=== PATIENT | female | born 1995 ===

== ENCOUNTER 2024-03-30 01:17 | Inpatient (IN) ==
[2024-03-30] MEDS ORDERED: OXYTOCIN 30 UNITS/NSS 30 UNITS/500 ML BAG IV PRN ×2 (02:00→20:27)
[2024-03-30] MEDS ORDERED: CALCIUM CARBONATE 500 MG CHEWABLE TAB PO PRN (02:00)
[2024-03-30] MEDS ORDERED: LIDOCAINE 1% LOCAL 20 ML VIAL INFIL PRN (02:00)
[2024-03-30] MEDS ORDERED: BUTORPHANOL TARTRATE 1 MG/ML VIAL IV PRN (02:00)
[2024-03-30] MEDS ORDERED: ACETAMINOPHEN 500 MG TAB PO PRN (02:00)
--- NOTE | 2024-03-30 02:08 | History & Physical Report ---
Date of Service March 30, 2024 Assessment & Plan (1) Uterine contractions at greater than 20 weeks of gestation: Plan: 28-year-old G1, P0 at 40 weeks and 1 day gestation presenting with uterine contractions, in early labor with tight bulging bag, Vital signs stable afebrile, GBS negative, heart rate reassuring, Plan to admit, monitor, labs, ambulate in early labor Discussed augmentation with oxytocin if no progress, patient desires to wait until her partner comes from [place], which is [address] She plans to get epidural when needed, All questions were answered. (2) Anxiety and depression: History of Present Illness Chief Complaint: Contractions Primary Care Provider: NO PCP patient is a 28-year-old G1, P0 at 40 weeks, 1 days gestation who has been feeling contractions since last night around 7 PM. States that it is irregular as every 5 to 3 minutes and then they are getting closer and more painful over time. She denies leakage of fluid or vaginal bleeding. She reports good movements. Her has been uncomplicated except, 1. Class II obesity during , growth scan 2 weeks ago was within normal limits, 2. Anxiety/depression during she has been on Zoloft, 25 mg daily and has been doing well 3. anemia during , on iron po twice daily GBS negative Allergies Allergy/AdvReac Type Severity Reaction Status Date / Time amoxicillin [From Augmentin] Allergy Hives Verified 03/30/24 01:38 clavulanic acid Allergy Hives Verified 03/30/24 01:38 [From Augmentin] Home Medications Medication Instructions Recorded Confirmed Type ascorbic acid (vitamin C) 250 mg 250 mg PO DAILY 03/30/24 03/30/24 History chewable tablet (Vitamin C) ferrous sulfate 325 mg (65 mg 325 mg PO DAILY 03/30/24 03/30/24 History iron) tablet (Iron (ferrous sulfate)) [id number] 1 mg 1 tab PO 03/30/24 History tablet sertraline 25 mg tablet (Zoloft) 25 mg PO DAILY 03/30/24 03/30/24 History Patient History Medical History Anxiety and depression Anxiety HPV (human papilloma virus) infection Surgical History History of colposcopy Social History Smoking Status: Never smoker Hx Alcohol Use: No Hx Substance Use: No Preferred Language: Slovenian Communication Ability: Effective Project Coordinator Required: No Beliefs That Will Affect Care: None marital status: Single Current Living Situation: Significant Other Feels Safe at Home: Yes Assistive Devices: None Review of Systems as per Subjective / HPI Physical Exam Constitutional: WD/WN, vitals as above well developed, well nourished and + acute distress ( with contractions only) Genitourinary: normal external appearance OB Exam Abdomen: + vertex Manual OB Exam: + cervical dilation 3 cm, + cervical effacement 70% and + station -2 ( tight bulging bag) OB Exam Monitor Tracing: + external uterine monitor used and + category I Results & Data Vital Signs (Past 12 Hours) Vital Signs Pulse BP 03/30/24 01:36 67 133/81
[2024-03-30] MEDS: LACTATED RINGER'S 1,000 ML IV ONE (02:20)
[2024-03-30 02:47] LABS: Hematocrit (blood only) 34.2 % (37.0-47.0); Hemoglobin 11.9 g/dl (12.0-16.0); Mean Corpuscular Hemoglobin 29.2 pg (25.0-34.0); Mean Corpuscular Hgb Conc 34.8 g/dL (32.0-36.0); Mean Platelet Volume 10.3 fL (9.4-12.4); Platelet Count 214 K/uL (130-400); RDW Coefficient of Variation 12.3 % (11.5-14.5); RDW Standard Deviation 37.3 fL (36.4-46.3); Red Blood Count 4.07 M/uL (4.20-5.40); White Blood Count 10.69 K/ul (4.8-10.8)
[2024-03-30 02:53] LABS: Albumin Globulin Ratio 1.1 (0.9-2); Albumin Level 3.3 gm/dl (3.4-5.0); BUN Creatinine Ratio 14.3 (10-20); Bilirubin,Total 0.2 mg/dl (0.2-1.0); Creatinine Clr Calc Pharmacy 138.6 ml/min; Est GFR (African American) 135.7 ml/min; Est GFR (Non-African American) 117.1 ml/min; Globulin 3.1 gm/dl (2.5-4.0); Potassium 3.8 mmol/L (3.5-5.1); Total Protein 6.4 gm/dl (6.0-8.3)
--- NOTE | 2024-03-30 08:49 | Labor Progress Brief Note ---
Date of Service March 30, 2024 Assessment & Plan Admission and Anticipated Discharge Date Admission Date: March 30, 2024 Physical Exam Genitourinary: OB Exam Abdomen: + estimated weight (7 lbs) Manual OB Exam: + cervical dilation 3 cm, + cervical effacement 70%, + station -2 and + amniotic fluid clear OB Exam Monitor Tracing: + external FHT monitor used, + external uterine monitor used, + category I and + normal FHT variability AROM with Amni-hook with clear fluid Results & Data Vital Signs (Past 12 Hours) Vital Signs Temp Pulse Resp BP 03/30/24 07:15 36.7 C 16 03/30/24 07:07 68 127/65 03/30/24 01:44 36.5 C 16 03/30/24 01:36 67 133/81
[2024-03-30] MEDS: LACTATED RINGER'S 1,000 ML IV PRN (08:54)
[2024-03-30] MEDS ORDERED: SERTRALINE HCL 50 MG TABLET PO SCH (09:00)
[2024-03-30] MEDS ORDERED: Nursing to Pharmacy Communication SCH (10:15)
[2024-03-30] MEDS: OXYTOCIN 30 UNITS/NSS 30 UNITS/500 ML BAG IV PRN (10:16)
[2024-03-30] MEDS ORDERED: diphenhydrAMINE 50 MG/ML VIAL IV PRN (12:27)
[2024-03-30] MEDS ORDERED: SODIUM CHLORIDE 0.9% PF INJ 10 ML VIAL EPI PRN (12:27)
[2024-03-30] MEDS ORDERED: LIDOCAINE 2% MPF LOCAL 5 ML VIAL EPI PRN (12:27)
[2024-03-30] MEDS ORDERED: NALBUPHINE HCL 5 MG in SYRINGE 0 ML IV PRN (12:27)
[2024-03-30] MEDS ORDERED: NALOXONE HCL 1 MG in SODIUM CHLORIDE 0.9% 1,000 ML IV PRN (12:27)
[2024-03-30] MEDS ORDERED: NALOXONE HCL 0.4 MG/1 ML VIAL/CARP IV PRN (12:27)
[2024-03-30] MEDS ORDERED: ePHEDrine sulfate 50 MG/ML AMP IV PRN (12:27)
[2024-03-30] MEDS ORDERED: ROPIVACAINE 0.5% PF 5 MG/ML 20 ML VIAL EPI PRN (12:27)
--- NOTE | 2024-03-30 12:27 | Anesthesiology Consultation ---
Date of Service March 30, 2024 Assessment & Plan Chart Review Chart Review: Acceptable Risk for Labor Epidural Consults Requested none History Height/Weight Height: 5 ft 4 in Weight: 103 kg Allergies Allergy/AdvReac Type Severity Reaction Status Date / Time amoxicillin [From Augmentin] Allergy Hives Verified 03/30/24 01:38 clavulanic acid Allergy Hives Verified 03/30/24 01:38 [From Augmentin] Medications Home Medications Medication Instructions Recorded Confirmed Last Taken ascorbic acid (vitamin C) 250 mg 250 mg PO DAILY 03/30/24 03/30/24 1 Day Ago chewable tablet (Vitamin C) ~03/29/24 ferrous sulfate 325 mg (65 mg 325 mg PO DAILY 03/30/24 03/30/24 1 Day Ago iron) tablet (Iron (ferrous ~03/29/24 sulfate)) [id number] 1 mg 1 tab PO 03/30/24 1 Day Ago tablet ~03/29/24 sertraline 25 mg tablet (Zoloft) 25 mg PO DAILY 03/30/24 03/30/24 1 Day Ago ~03/29/24 Active Medications Generic Name Dose Route Start Last Admin Trade Name Freq PRN Reason Stop Dose Admin Lactated Ringer's 1,000 mls @ 150 mls/hr 03/30/24 02:00 03/30/24 11:54 Lr IV 04/01/24 01:59 999 mls/hr .[id number] PRN Infusion L&D Protocol Protocol Oxytocin 30 units in 500 mls @ 5 mls/hr 03/30/24 02:08 03/30/24 11:16 Pitocin 30 Units/Nss IV 04/01/24 02:07 0.3 units/hr .Q24H PRN 5 mls/hr Labor Induction/Augmentation Titration Protocol 0.3 UNITS/HR Past Medical History Medical History Anxiety and depression Anxiety HPV (human papilloma virus) infection Past Surgical History Surgical History History of colposcopy Social History Smoking Status: Never smoker Hx Alcohol Use: No Hx Substance Use: No Review of Systems Constitutional: as per Subjective / HPI Physical Exam Vital Signs Last Vital Signs Temp 36.9 C 03/30/24 10:20 Pulse 65 03/30/24 12:24 Resp 22 03/30/24 12:00 BP 136/81 03/30/24 11:17 Pulse Ox 98 03/30/24 12:24 Constitutional WD/WN, vitals as above well developed, well nourished and + acute distress ( with contractions only) Genitourinary normal external appearance OB Exam Abdomen: + vertex and + estimated weight (7 lbs) Manual OB Exam: + cervical dilation + 3 cm, + cervical effacement + 70%, + station + -2 and + amniotic fluid + clear OB Exam Monitor Tracing: + external FHT monitor used, + external uterine monitor used, + category I and + normal FHT variability Testing Laboratory Results 03/30/24 02:13 03/30/24 02:13 Blood Type O Positive 03/30/24 02:13 Antibody Screen NEGATIVE 03/30/24 02:13
[2024-03-30] MEDS: fentANYL 2 MCG/ML BUPIVacaine 0.125%-NSS 100ML BAG ONE (12:33)
[2024-03-30] MEDS: LIDOCAINE 2%/EPINEPHRINE 1:200,000 20 ML PF ONE (12:33)
[2024-03-30] MEDS: BUPIVACAINE 0.25% PF 30 ML VIAL ONE (13:10)
[2024-03-30] MEDS: fentaNYL citrate PF 100 MCG/2 ML VIAL ONE (13:10)
[2024-03-30] MEDS: ePHEDrine sulfate 50 MG/ML AMP ONE (13:10)
[2024-03-30] MEDS: SODIUM CHLORIDE 0.9% PF INJ 10 ML VIAL ONE (13:11)
[2024-03-30] MEDS: BUPIVACAINE 0.25% PF 30 ML VIAL EPI STA (13:11)
[2024-03-30] MEDS: fentaNYL citrate PF 100 MCG/2 ML VIAL EPI STA (13:11)
[2024-03-30] MEDS: SODIUM CHLORIDE 0.9% PF INJ 10 ML VIAL EPI STA (13:12)
[2024-03-30] MEDS: LIDOCAINE 2%/EPINEPHRINE 1:200,000 20 ML PF EPI STA (13:12)
[2024-03-30] MEDS: SERTRALINE HCL 50 MG TABLET PO SCH (13:23)
[2024-03-30] MEDS: fentANYL 2 MCG/ML BUPIVacaine 0.125%-NSS 100ML BAG EPI PRN (16:37)
[2024-03-30] MEDS ORDERED: NURSING L&D Epidural Breakthrough Pain Update ONE (16:52)
[2024-03-30] MEDS: BUPIVACAINE 0.25% PF 30 ML VIAL EPI PRN (17:06)
[2024-03-30] MEDS: fentaNYL citrate PF 100 MCG/2 ML VIAL EPI PRN (17:06)
--- NOTE | 2024-03-30 17:07 | Anesthesia Procedure Note ---
Date of Service March 30, 2024 Anesthesia Epidural Re-Dose Vital Signs Temp Pulse Resp BP Pulse Ox 37.1 C 74 20 115/64 97 03/30/24 16:15 03/30/24 17:04 03/30/24 16:30 03/30/24 16:23 03/30/24 17:04 Notes Pain Intensity: 8 Dilatation (cm): 5.5 Effacement (%): 90 Called by nursing to evaluate epidural as the patient is having increased pain. The epidural was re-dosed with the following medications (all medications via epidural route) after negative aspiration of the epidural catheter for CSF/HEME. 0.2 Ropivacaine ml via epidural After Epidural Re-Dose Mental Status: alert / awake / arousable and participated in evaluation Pain: improving with treatment Airway Patency, RR, SpO2: stable & adequate BP & HR: stable & adequate Additional Notes: Asked to evaluate patient for increased pain. Upon test with ice, patient had b/l T12 level. Redosed patient with 8 cc of 0.25 bupi and 100 mcg fentanyl. Pain improved. HDS after redose
[2024-03-30] MEDS ORDERED: fentaNYL citrate PF 100 MCG/2 ML VIAL EPI PRN (17:16)
--- NOTE | 2024-03-30 20:15 | Delivery Summary ---
Vaginal Delivery Summary Date of Service March 30, 2024 Vaginal Delivery Summary live female MARIANA over intact perineum with delayed cord clamping and Apgars 8/8 weight pending. Cord blood obtained followed by spontaneous delivery of intact placenta. No tears. QBL pending. Final sponge and instrument count are correct. Mom and baby stable.
--- NOTE | 2024-03-30 20:21 | Anesthesia Procedure Note ---
Date of Service March 30, 2024 Anesthesia Post Epidural Note Vital Signs Vital Signs: Temp Pulse Resp BP Pulse Ox 36.7 C 80 18 134/72 99 03/30/24 19:48 03/30/24 20:15 03/30/24 19:48 03/30/24 20:08 03/30/24 20:15 Pain Intensity Lower Abdomen: Pain Intensity: 4 Notes Mental Status: alert / awake / arousable and participated in evaluation Nausea / Vomiting: adequately controlled Pain: adequately controlled Airway Patency, RR, SpO2: stable & adequate BP & HR: stable & adequate Hydration State: stable & adequate Neuraxial Anesthesia: was administered and sensory block is resolving Anesthetic Complications: no major complications apparent Epidural: Removed without complications and With tip intact
[2024-03-30] MEDS ORDERED: ACETAMINOPHEN 325 MG TAB PO PRN (20:27)
[2024-03-30] MEDS ORDERED: HYDROCORTISONE ACETATE 25 MG SUPP PR PRN (20:27)
[2024-03-30] MEDS ORDERED: DIPHTHER/TETAN/PERTUS Vaccine (Tdap, Adol/Adult) 0.5mL IM ONE (20:27)
[2024-03-30] MEDS ORDERED: bisacodyL 10 MG SUPP PR PRN (20:27)
[2024-03-30] MEDS: BENZOCAINE 20% SPRY 85 APPLN/85 GM CAN EXT PRN (23:52)
[2024-03-30] MEDS: DOCUSATE SODIUM 100 MG CAP PO SCH (23:53)
[2024-03-31 06:48] LABS: Hematocrit (blood only) 33.7 % (37.0-47.0); Hemoglobin 11.5 g/dl (12.0-16.0); Mean Corpuscular Hemoglobin 29.3 pg (25.0-34.0); Mean Corpuscular Hgb Conc 34.1 g/dL (32.0-36.0); Mean Corpuscular Volume 85.8 fL (80.0-100.0); Mean Platelet Volume 10.1 fL (9.4-12.4); Platelet Count 200 K/uL (130-400); RDW Coefficient of Variation 12.4 % (11.5-14.5); RDW Standard Deviation 38.7 fL (36.4-46.3); Red Blood Count 3.93 M/uL (4.20-5.40); White Blood Count 12.87 K/ul (4.8-10.8)
[2024-03-31] MEDS: PRENATAL VITAMIN 1 TAB PO SCH (07:41)
[2024-03-31] MEDS: FERROUS SULFATE 325 MG TAB PO SCH (07:41)
[2024-03-31] MEDS: IBUPROFEN 600 MG TAB PO PRN (07:41)
--- NOTE | 2024-03-31 07:44 | Obstetrical Progress Note ---
Date of Service March 31, 2024 Assessment & Plan (1) Normal course: Continue routine PP course Anticipate d/c home tomorrow Subjective Ambulation: ambulating normally Voiding: no voiding problems Passing Gas:: No Diet Tolerance:: regular diet Lochia:: Moderate Feeding Type:: breast feeding Current Pain Level(1-10): 4 Patient doing well at this time, currently breast-feeding girl. No complaints at this time. Has not passed gas or had a bowel movement. Getting her morning meds by nursing staff Review of Systems All systems reviewed & are unremarkable except as noted in HPI & below Physical Exam Constitutional WD/WN, vitals as above Respiratory normal respiratory effort, lungs clear to auscultation Cardiovascular RRR, no murmur, no edema Gastrointestinal (Abdomen) normal bowel sounds, soft, nontender, no hepatosplenomegaly fundus below U Results & Data Vital Signs (Past 12 Hours) Vital Signs Temp Pulse Pulse Resp BP BP Pulse Ox 03/31/24 03:30 36.6 C 71 20 128/77 99 03/30/24 23:20 36.5 C 65 20 144/81 H 97 03/30/24 22:10 75 97 03/30/24 22:08 18 03/30/24 22:08 71 134/68 03/30/24 22:05 68 96 03/30/24 22:00 69 97 03/30/24 21:55 73 98 03/30/24 21:53 78 130/68 03/30/24 21:50 77 98 03/30/24 21:45 79 98 03/30/24 21:40 67 97 03/30/24 21:38 18 03/30/24 21:38 70 124/65 03/30/24 21:35 67 98 03/30/24 21:30 69 98 03/30/24 21:25 66 98 03/30/24 21:23 71 118/58 L 03/30/24 21:20 65 98 03/30/24 21:15 70 99 03/30/24 21:10 77 98 03/30/24 21:08 18 03/30/24 21:08 68 142/68 H 03/30/24 21:05 74 93 03/30/24 21:00 79 97 03/30/24 20:57 75 88 L 03/30/24 20:55 71 98 03/30/24 20:53 18 03/30/24 20:53 74 151/64 H 03/30/24 20:50 83 97 03/30/24 20:45 70 98 03/30/24 20:40 71 97 03/30/24 20:38 18 03/30/24 20:38 70 140/64 03/30/24 20:35 74 100 03/30/24 20:30 68 99 03/30/24 20:25 69 97 03/30/24 20:23 18 03/30/24 20:23 70 140/81 03/30/24 20:20 75 99 03/30/24 20:15 80 99 03/30/24 20:10 72 98 03/30/24 20:08 18 03/30/24 20:08 73 134/72 03/30/24 20:04 78 98 03/30/24 19:59 84 98 03/30/24 19:56 90 18 75 L 03/30/24 19:54 83 93 03/30/24 19:53 90 161/82 H 03/30/24 19:49 67 98 03/30/24 19:48 36.7 C 68 18 135/86 03/30/24 19:44 71 98 03/30/24 19:43 66 139/69 O2 Del Method 03/31/24 03:30 Room Air 03/30/24 23:20 Room Air 03/30/24 22:10 03/30/24 22:08 03/30/24 22:08 03/30/24 22:05 03/30/24 22:00 03/30/24 21:55 03/30/24 21:53 03/30/24 21:50 03/30/24 21:45 03/30/24 21:40 03/30/24 21:38 03/30/24 21:38 03/30/24 21:35 03/30/24 21:30 03/30/24 21:25 03/30/24 21:23 03/30/24 21:20 03/30/24 21:15 03/30/24 21:10 03/30/24 21:08 03/30/24 21:08 03/30/24 21:05 03/30/24 21:00 03/30/24 20:57 03/30/24 20:55 03/30/24 20:53 03/30/24 20:53 03/30/24 20:50 03/30/24 20:45 03/30/24 20:40 03/30/24 20:38 03/30/24 20:38 03/30/24 20:35 03/30/24 20:30 03/30/24 20:25 03/30/24 20:23 03/30/24 20:23 03/30/24 20:20 03/30/24 20:15 03/30/24 20:10 03/30/24 20:08 03/30/24 20:08 03/30/24 20:04 03/30/24 19:59 03/30/24 19:56 03/30/24 19:54 03/30/24 19:53 03/30/24 19:49 03/30/24 19:48 03/30/24 19:44 03/30/24 19:43 Laboratory Results Laboratory Results WBC 12.87 K/ul (4.8-10.8) H 03/31/24 06:23 RBC 3.93 M/uL (4.20-5.40) L 03/31/24 06:23 Hgb 11.5 g/dl (12.0-16.0) L 03/31/24 06:23 Hct 33.7 % (37.0-47.0) L 03/31/24 06:23 MCV 85.8 fL (80.0-100.0) 03/31/24 06:23 MCH 29.3 pg (25.0-34.0) 03/31/24 06:23 MCHC 34.1 g/dL (32.0-36.0) 03/31/24 06:23 RDW Std Deviation 38.7 fL (36.4-46.3) 03/31/24 06:23 RDW Coeff of Dinesh 12.4 % (11.5-14.5) 03/31/24 06:23 Plt Count 200 K/uL (130-400) 03/31/24 06:23 MPV 10.1 fL (9.4-12.4) 03/31/24 06:23 Sodium 135 mmol/L (136-145) L 03/30/24 02:13 Potassium 3.8 mmol/L (3.5-5.1) 03/30/24 02:13 Chloride 104 mmol/L (98-107) 03/30/24 02:13 Carbon Dioxide 22 mmol/L (21-32) 03/30/24 02:13 Anion Gap 9 (3-11) 03/30/24 02:13 BUN 10 mg/dl (6-23) 03/30/24 02:13 Creatinine 0.70 mg/dl (0.6-1.2) 03/30/24 02:13 Est Cr Clr Drug Dosing 138.6 ml/min 03/30/24 02:13 Est GFR ( Amer) 135.7 ml/min 03/30/24 02:13 Est GFR (Non-Af Amer) 117.1 ml/min 03/30/24 02:13 BUN/Creatinine Ratio 14.3 (10-20) 03/30/24 02:13 Glucose 85 mg/dl (70-99(Fasting)) 03/30/24 02:13 Calcium 9.0 mg/dl (8.6-10.3) 03/30/24 02:13 Total Bilirubin 0.2 mg/dl (0.2-1.0) 03/30/24 02:13 AST 13 U/L (13-39) 03/30/24 02:13 ALT 11 U/L (7-52) 03/30/24 02:13 Alkaline Phosphatase 139 U/L (34-104) H 03/30/24 02:13 Total Protein 6.4 gm/dl (6.0-8.3) 03/30/24 02:13 Albumin 3.3 gm/dl (3.4-5.0) L 03/30/24 02:13 Globulin 3.1 gm/dl (2.5-4.0) 03/30/24 02:13 Albumin/Globulin Ratio 1.1 (0.9-2) 03/30/24 02:13 Blood Type O Positive 03/30/24 02:13 Antibody Screen NEGATIVE 03/30/24 02:13
[2024-03-31] MEDS ORDERED: NON-FORMULARY MEDICATION (Ferrous Sulfate [Iron (Ferrous Sulfate)] 325 mg (65 mg iron) Tab PO SCH (09:00)
[2024-03-31] MEDS: ASCORBIC ACID 500 MG TAB PO SCH (15:12)
[2024-03-31] MEDS: bisacodyL 5 MG TABEC PO SCH (21:56)
[2024-04-01 06:35] LABS: Hematocrit (blood only) 30.2 % (37.0-47.0); Hemoglobin 10.4 g/dl (12.0-16.0)
--- NOTE | 2024-04-01 10:12 | Obstetrical Progress Note ---
Date of Service April 01, 2024 Subjective Ambulation: ambulating normally Voiding: no voiding problems Passing Gas:: Yes Diet Tolerance:: regular diet Lochia:: Small Feeding Type:: breast feeding Current Pain Level(1-10): 0 doing well Physical Exam Constitutional WD/WN, vitals as above Gastrointestinal (Abdomen) Inspection/Auscultation: abdomen normal to inspection abdomen soft and non-tender. fundus firm below U Musculoskeletal Extremities: extremities normal to inspection Skin no rashes, warm and dry Neurologic patellar DTR's 2+ bilat, sensation intact Psychiatric A+Ox3, euthymic affect Results & Data Vital Signs (Past 12 Hours) Vital Signs Temp Pulse Resp BP Pulse Ox O2 Del Method 04/01/24 08:05 36.8 C 76 16 123/81 96 Room Air 04/01/24 01:49 36.8 C 79 18 124/83 98 Room Air Laboratory Results 03/30/24 03/31/24 04/01/24 02:13 06:23 05:53 WBC 10.69 12.87 H RBC 4.07 L 3.93 L Hgb 11.9 L 11.5 L 10.4 L Hct 34.2 L 33.7 L 30.2 L MCV 84.0 85.8 MCH 29.2 29.3 MCHC 34.8 34.1 RDW Std Deviation 37.3 38.7 RDW Coeff of Dinesh 12.3 12.4 Plt Count 214 200 MPV 10.3 10.1 Sodium 135 L Potassium 3.8 Chloride 104 Carbon Dioxide 22 Anion Gap 9 BUN 10 Creatinine 0.70 Est Cr Clr Drug Dosing 138.6 Est GFR ( Amer) 135.7 Est GFR (Non-Af Amer) 117.1 BUN/Creatinine Ratio 14.3 Glucose 85 Calcium 9.0 Total Bilirubin 0.2 AST 13 ALT 11 Alkaline Phosphatase 139 H Total Protein 6.4 Albumin 3.3 L Globulin 3.1 Albumin/Globulin Ratio 1.1 Blood Type O Positive Antibody Screen NEGATIVE
== END 2024-04-01 14:50 | disposition home or self-care (01) | DRG 807 ==
LOC: OPB 01:17 → 4S1 01:30 → 4E2 23:00